=== PATIENT | female | born 1965 | race Caucasian/White ===

== ENCOUNTER 2022-05-20 17:30 | Inpatient (IN) | payer MEDICAID ==
[~2022-05-20] VITALS: Ht 172.7 cm; Wt 116.0 kg
[2022-05-20] MEDS ORDERED: ASPirin 325 MG TAB PO ONE (17:45)
[2022-05-20] MEDS ORDERED: HEPARIN 1,000 UNITS/ml 1ML VIAL IV ONE (18:00)
[2022-05-20 18:01] LABS: Basophils # (auto) 0.1 10 ^3/uL (0-0.2); Eosinophils # (auto) 0.2 10 ^3/uL (0-0.8); Eosinophils % (auto) 1.6 % (0.0-7.0); Hematocrit 45.1 % (36.0-46.0); Hemoglobin 15.4 g/dL (12.2-16.2); Lymphocytes % (auto) 27.5 % (10.0-50.0); Mean Corpuscular Hemoglobin 32.3 pg (28.0-32.0); Mean Corpuscular Hgb Conc. 34.2 g/dL (32.0-36.0); Mean Corpuscular Volume 94.5 fL (80.0-100.0); Monocytes % (auto) 6.8 % (0.0-12.0); Neutrophils # (auto) 9.2 10 ^3/uL (1.6-8.6); Neutrophils % (auto) 63.1 % (37.0-80.0); Nucleated Red Blood Cells % 0.1 %; Red Blood Cells 4.77 10^6/uL (4.0-5.20); Red Cell Distribution Width 13.8 % (11.8-14.3); White Blood Cell 14.6 10^3/uL (4.4-10.8)
[2022-05-20] MEDS ORDERED: HEPARIN SODIUM (PORCINE) 5000 UNITS/ML 1ML VIAL ONE ×2 (18:05→18:07)
[2022-05-20] MEDS ORDERED: SODIUM CHL 0.9% 50 ML ONE ×2 (18:05→18:43)
[2022-05-20] MEDS ORDERED: ANGIOMAX 250 MG VIAL IV ONE ×2 (18:05→18:43)
[2022-05-20] MEDS ORDERED: MIDAZOLAM HCL 2MG/2ML 2ml VIAL (1mg/ml) ONE (18:05)
[2022-05-20] MEDS ORDERED: fentaNYL CITRATE 100 MCG/2 ML VL ONE (18:05)
[2022-05-20] MEDS ORDERED: IODIXANOL 320MG/ML 100ML BTL IV ONE (18:06)
[2022-05-20] MEDS ORDERED: LIDOCAINE 2%HCL (LOCAL ANESTH.) INJ 20ML MDV ONE (18:06)
[2022-05-20 18:21] LABS: Albumin 3.7 g/dL (3.4-5.0); Calcium 8.8 mg/dL (8.5-10.1); Magnesium 2.2 mg/dL (1.6-2.6); Potassium 3.9 mmol/L (3.5-5.1)
[2022-05-20 18:24] LABS: Bilirubin, Total 0.4 mg/dL (0.2-1.0); Total Protein 7.2 g/dL (6.4-8.2)
[2022-05-20] MEDS ORDERED: EPTIFIBATIDE INJ (2MG/ML) 10ML VIAL IV ONE (18:30)
[2022-05-20] MEDS ORDERED: IOHEXOL 350 MG/ML 100ML IJ ONE (18:31)
[2022-05-20] MEDS ORDERED: EPINEPHrine HCL 1 MG/10 ML SYRG ONE (18:32)
[2022-05-20] MEDS ORDERED: ATROPINE SULF 1 MG/10ml SYR ONE (18:32)
[2022-05-20] MEDS ORDERED: niCARdipine 25 MG/10 ML VIAL IV ONE (18:36)
[2022-05-20] MEDS ORDERED: TICAGRELOR 90 MG TAB ONE (18:52)
[2022-05-20] MEDS ORDERED: ASPirin 325 MG TAB ONE (18:52)
[2022-05-20] MEDS ORDERED: MORPHINE SULFATE INJ 2 MG/ml SYRG IV PRN (19:00)
[2022-05-20] MEDS ORDERED: cefTRIAXone 1GM/50ML D5W 50 ML IV ONE (19:00)
[2022-05-20] MEDS ORDERED: NITROGLYCERIN 0.4 MG SL TAB SL PRN (19:00)
[2022-05-20] MEDS ORDERED: LABETALOL HCL 5 MG/ML 4ML SYRINGE IV PRN (19:30)
[2022-05-20] MEDS ORDERED: NICOTINE 14 MG/24HR TOPICAL PATCH TD SCH (19:30)
[2022-05-20] MEDS ORDERED: ONDANSETRON HCL 4 MG/2 ML VIAL IV PRN (19:30)
[2022-05-20] MEDS ORDERED: HYDROmorphone HCL 2 MG/ML VL/or syr IV PRN (19:30)
[2022-05-20] MEDS ORDERED: HYDROcodone-ACET 5/325MG TAB PO PRN (19:30)
[2022-05-20 21:46] VITALS: BP 143/74
[2022-05-20] MEDS ORDERED: ATOR-47 PO (21:48)
[2022-05-20] MEDS ORDERED: LISI-716 PO (21:48)
[2022-05-20] MEDS ORDERED: ASPI-431 PO (21:48)
[2022-05-20] MEDS ORDERED: NIFE-3 (21:48)
[2022-05-20] MEDS ORDERED: LISI-275 PO (21:48)
[2022-05-20] MEDS ORDERED: LABE200T6 PO (21:48)
[2022-05-20] MEDS: TICAGRELOR 90 MG TAB PO SCH (22:00)
[2022-05-20] MEDS: PANTOPRAZOLE 40 MG/10 ML VIAL INJ IV SCH (22:16)
[2022-05-20] MEDS: SODIUM CHLOR 0.9% PF (SALINE LOCK) 10ML VIAL/SYR IV SCH (22:17)
[2022-05-20] MEDS: METOPROLOL TARTRATE 50 MG TAB PO SCH (22:17)
[2022-05-21 05:00] VITALS: BP 144/75
[2022-05-21 05:07] LABS: Basophils # (auto) 0.1 10 ^3/uL (0-0.2); Basophils % (auto) 0.8 % (0.0-2.0); Eosinophils # (auto) 0.1 10 ^3/uL (0-0.8); Eosinophils % (auto) 1.1 % (0.0-7.0); Hematocrit 42.3 % (36.0-46.0); Hemoglobin 14.6 g/dL (12.2-16.2); Lymphocytes # (auto) 2.6 10 ^3/uL (0.4-5.4); Lymphocytes % (auto) 21.1 % (10.0-50.0); Mean Corpuscular Hemoglobin 32.9 pg (28.0-32.0); Mean Corpuscular Hgb Conc. 34.5 g/dL (32.0-36.0); Mean Corpuscular Volume 95.4 fL (80.0-100.0); Monocytes # (auto) 0.9 10 ^3/uL (0-1.3); Monocytes % (auto) 7.6 % (0.0-12.0); Neutrophils # (auto) 8.6 10 ^3/uL (1.6-8.6); Neutrophils % (auto) 69.4 % (37.0-80.0); Nucleated Red Blood Cells % 0.1 %; Red Blood Cells 4.44 10^6/uL (4.0-5.20); Red Cell Distribution Width 13.6 % (11.8-14.3); White Blood Cell 12.4 10^3/uL (4.4-10.8)
[2022-05-21] MEDS: SODIUM CHLOR 0.9% PF (SALINE LOCK) 10ML VIAL/SYR IV SCH ×3 (05:21→21:29)
[2022-05-21 05:26] LABS: Albumin 3.5 g/dL (3.4-5.0); Calcium 8.4 mg/dL (8.5-10.1); Potassium 4.4 mmol/L (3.5-5.1)
[2022-05-21 05:29] LABS: BUN/Creatinine Ratio 23.5; Bilirubin, Total 0.4 mg/dL (0.2-1.0); Total Protein 6.8 g/dL (6.4-8.2)
[2022-05-21 09:00] VITALS: BP 155/84
[2022-05-21] MEDS: ATORVASTATIN 20 MG TAB PO SCH ×2 (09:15→16:05)
[2022-05-21] MEDS: ASPirin-EC 81 mg tab PO SCH (09:15)
[2022-05-21] MEDS: cefTRIAXone 1GM/50ML D5W 50 ML IV SCH (09:15)
[2022-05-21] MEDS: PANTOPRAZOLE 40 MG/10 ML VIAL INJ IV SCH (09:15)
[2022-05-21] MEDS: TICAGRELOR 90 MG TAB PO SCH ×2 (09:16→21:29)
[2022-05-21] MEDS: METOPROLOL TARTRATE 50 MG TAB PO SCH ×2 (09:16→21:29)
[2022-05-21] MEDS: NICOTINE 7MG/24HR TOPICAL PATCH TD SCH (09:16)
[2022-05-21 10:10] LABS: Urine Bacteria FEW /hpf (None Seen); Urine Blood Negative /uL (Negative); Urine Mucus FEW (None Seen); Urine WBC 6 /hpf (0 - 5)
[2022-05-21 10:25] LABS: Alcohol, Urine < 3.0 mg/dL (0-10); Amphetamine Screen, Urine NEGATIVE (NEGATIVE); Barbiturate Scree,Urine NEGATIVE (NEGATIVE); Benzodiazephine Screen, Urine POSITIVE (NEGATIVE); Cannabinoid Screen, Urine NEGATIVE (NEGATIVE); Cocaine Screen, Urine NEGATIVE (NEGATIVE); Opiate Scree,Urine NEGATIVE (NEGATIVE); Phencyclidine Screen, Urine NEGATIVE (NEGATIVE)
[2022-05-21] MEDS ORDERED: LISINOPRIL 10 MG TAB PO ONE (11:15)
[2022-05-21 11:53] LABS: Urine Specific Gravity 1.048 (1.001-1.035)
[2022-05-21 13:00] VITALS: BP 149/82
[2022-05-21 16:46] VITALS: BP 144/77
[2022-05-21 21:55] VITALS: BP 175/73
[2022-05-22 04:30] VITALS: BP 160/83
[2022-05-22 06:14] LABS: Basophils # (auto) 0.1 10 ^3/uL (0-0.2); Basophils % (auto) 0.6 % (0.0-2.0); Eosinophils # (auto) 0.1 10 ^3/uL (0-0.8); Eosinophils % (auto) 1.3 % (0.0-7.0); Hematocrit 41.8 % (36.0-46.0); Hemoglobin 14.1 g/dL (12.2-16.2); Lymphocytes # (auto) 1.9 10 ^3/uL (0.4-5.4); Lymphocytes % (auto) 17.4 % (10.0-50.0); Mean Corpuscular Hemoglobin 32.1 pg (28.0-32.0); Mean Corpuscular Hgb Conc. 33.8 g/dL (32.0-36.0); Mean Corpuscular Volume 95.2 fL (80.0-100.0); Monocytes # (auto) 0.9 10 ^3/uL (0-1.3); Monocytes % (auto) 7.7 % (0.0-12.0); Neutrophils # (auto) 8.1 10 ^3/uL (1.6-8.6); Red Blood Cells 4.39 10^6/uL (4.0-5.20); White Blood Cell 11.1 10^3/uL (4.4-10.8)
[2022-05-22 06:32] LABS: Calcium 8.4 mg/dL (8.5-10.1)
[2022-05-22 06:35] LABS: BUN/Creatinine Ratio 22.9
[2022-05-22] MEDS: SODIUM CHLOR 0.9% PF (SALINE LOCK) 10ML VIAL/SYR IV SCH ×3 (06:48→22:00)
[2022-05-22] MEDS: cefTRIAXone 1GM/50ML D5W 50 ML IV SCH (08:57)
[2022-05-22] MEDS: METOPROLOL TARTRATE 50 MG TAB PO SCH ×2 (08:57→22:23)
[2022-05-22] MEDS: TICAGRELOR 90 MG TAB PO SCH ×2 (08:57→22:22)
[2022-05-22] MEDS: ASPirin-EC 81 mg tab PO SCH (08:58)
[2022-05-22] MEDS: PANTOPRAZOLE 40 MG TAB PO SCH (08:58)
[2022-05-22] MEDS: ATORVASTATIN 20 MG TAB PO SCH (08:58)
[2022-05-22 09:00] VITALS: BP 168/96
[2022-05-22] MEDS: NICOTINE 7MG/24HR TOPICAL PATCH TD SCH (10:00)
[2022-05-22] MEDS ORDERED: LISINOPRIL 10 MG TAB PO SCH (10:00)
[2022-05-22] MEDS ORDERED: LEVOTHYROXINE SODIUM 25 MCG TAB PO ONE (11:30)
[2022-05-22] MEDS ORDERED: LISINOPRIL 10 MG TAB PO ONE (11:30)
[2022-05-22 13:00] VITALS: BP 145/83
[2022-05-22 16:58] VITALS: BP 161/83
[2022-05-22 22:00] VITALS: BP 150/83
[2022-05-23 05:00] VITALS: BP 125/82
[2022-05-23] MEDS: SODIUM CHLOR 0.9% PF (SALINE LOCK) 10ML VIAL/SYR IV SCH ×2 (06:33→14:43)
[2022-05-23] MEDS ORDERED: LEVOTHYROXINE SODIUM 25 MCG TAB PO SCH (07:00)
[2022-05-23 09:00] VITALS: BP 210/92
[2022-05-23] MEDS ORDERED: LISINOPRIL 20 MG TAB PO SCH (10:00)
[2022-05-23] MEDS: ASPirin-EC 81 mg tab PO SCH (10:05)
[2022-05-23] MEDS: TICAGRELOR 90 MG TAB PO SCH (10:05)
[2022-05-23] MEDS: cefTRIAXone 1GM/50ML D5W 50 ML IV SCH (10:05)
[2022-05-23] MEDS: PANTOPRAZOLE 40 MG TAB PO SCH (10:06)
[2022-05-23] MEDS: METOPROLOL TARTRATE 50 MG TAB PO SCH (10:06)
[2022-05-23] MEDS: ATORVASTATIN 20 MG TAB PO SCH (10:10)
[2022-05-23] MEDS: NICOTINE 7MG/24HR TOPICAL PATCH TD SCH (10:12)
[2022-05-23] MEDS ORDERED: ATOR20TA50 PO (11:22)
[2022-05-23] MEDS ORDERED: ASPI-543 PO (11:22)
[2022-05-23] MEDS ORDERED: LEVO500T31 PO (11:22)
[2022-05-23] MEDS ORDERED: LISI20TA28 PO (11:22)
[2022-05-23] MEDS ORDERED: MET50T PO (11:22)
[2022-05-23] MEDS ORDERED: PANT40T PO (11:22)
[2022-05-23] MEDS ORDERED: NICO1DIS30 TD (11:22)
[2022-05-23] MEDS ORDERED: LEV25T PO (11:22)
[2022-05-23] MEDS ORDERED: TICA90TA PO (11:22)
[2022-05-23 12:30] VITALS: BP 146/82
[2022-05-23 13:31] VITALS: BP 175/89
== END 2022-05-23 13:48 | disposition home or self-care (01) | DRG 174 ==
LOC: EDBD 17:30 → ER 17:30 → TELE 18:47 → TELE-EAST 20:10
PROVIDERS: ADMIT Registered Nurse; ATTEND Internal Medicine
PROC: B2151ZZ Fluoroscopy of Left Heart using Low Osmolar Contrast (ICD-10-PCS; principal; 2022-05-20)
PROC: 4A023N7 Measurement of Cardiac Sampling and Pressure, Left Heart, Percutaneous Approach (ICD-10-PCS; 2022-05-20)
PROC: 027034Z Dilation of Coronary Artery, One Artery with Drug-eluting Intraluminal Device, Percutaneous Approach (ICD-10-PCS; 2022-05-20)
PROC: 02C03ZZ Extirpation of Matter from Coronary Artery, One Artery, Percutaneous Approach (ICD-10-PCS; 2022-05-20)
PROC: 3E073PZ Introduction of Platelet Inhibitor into Coronary Artery, Percutaneous Approach (ICD-10-PCS; 2022-05-20)
PROC: B240ZZ3 Ultrasonography of Single Coronary Artery, Intravascular (ICD-10-PCS; 2022-05-20)
PROC: B41F1ZZ Fluoroscopy of Right Lower Extremity Arteries using Low Osmolar Contrast (ICD-10-PCS; 2022-05-20)
PROC: B2151ZZ Fluoroscopy of Left Heart using Low Osmolar Contrast (ICD-10-PCS; 2022-05-20)
DX: I21.19 ST elevation (STEMI) myocardial infarction involving other coronary artery of inferior wall (principal); N17.0 Acute kidney failure with tubular necrosis; N39.0 Urinary tract infection, site not specified; Z20.822 Contact with and (suspected) exposure to COVID-19; B96.1 Klebsiella pneumoniae [K. pneumoniae] as the cause of diseases classified elsewhere; E03.9 Hypothyroidism, unspecified; E66.01 Morbid (severe) obesity due to excess calories; I16.0 Hypertensive urgency; I10 Essential (primary) hypertension; I73.9 Peripheral vascular disease, unspecified; Z68.38 Body mass index [BMI] 38.0-38.9, adult; Z79.02 Long term (current) use of antithrombotics/antiplatelets; Z79.82 Long term (current) use of aspirin; Z79.899 Other long term (current) drug therapy; Z91.14 Patient's other noncompliance with medication regimen; Z71.6 Tobacco abuse counseling; Z72.0 Tobacco use
CPT/HCPCS: 36415; 71045; 75710; 80048; 80053; 80061; 80307; 81001; 83735; 83880; 84443; 84484; 85025; 87086; 87088; 87186; 92928; 92973; 92978; 93005; 93458; 96374; 99152; 99153; 99291; C1874; C1887; C9113; G0378; J0696; J2250; J3490; Q9967

== ENCOUNTER 2024-10-13 06:20 | Emergency (ER) | payer MEDICAID ==
[~2024-10-13] VITALS: Ht 172.7 cm; Wt 124.1 kg
[~2024-10-13 06:20] MED LIST: ASPI-431 PO; ASPI-543 PO; ATOR-47 PO; ATOR20TA50 PO; LABE200T10 PO; LEV25T PO; LEVO500T31 PO; LISI10TA34 PO; LISI20TA56 PO; MET50T PO; NICO1DIS30 TD; NIFE-3; PANT40T PO; TICA90TA PO
[2024-10-13 06:30] VITALS: BP 215/108; PULSE 93; RESP 14; O2SAT 95
[2024-10-13] MEDS: cloNIDine HCL 0.1 MG TAB PO ONE (06:49)
== END 2024-10-13 07:31 | disposition left against medical advice (07) ==
LOC: ER 06:20
DX: H92.02 Otalgia, left ear (principal); Z53.21 Procedure and treatment not carried out due to patient leaving prior to being seen by health care provider